=== PATIENT | female | born 1950 | race Caucasian/White ===

== ENCOUNTER 2023-12-04 20:41 | Inpatient (IN) | payer MEDICARE, OTHER, SELFPAY ==
[2023-12-04 17:13] VITALS: BP 164/87
[2023-12-04 17:27] LABS: Urine Albumin Trace (Neg - Trace); Urine Bilirubin Negative (Negative); Urine Character Clear (Clear); Urine Color Yellow; Urine Glucose Negative (Negative); Urine Ketone 2+ (Negative); Urine Leukocyte Trace (Negative); Urine Nitrite Negative (Negative); Urine Occult Blood 2+ (Negative); Urine Urobilinogen Negative (Neg - 1+)
[2023-12-04 17:56] LABS: Urine Red Blood Cell 21-25 /HPF (0-2)
[2023-12-04 17:57] LABS: Urine Bacteria Few (Negative)
--- NOTE | 2023-12-04 18:06 | ED.GENMED ---
History of Present Illness
General
Chief Complaint: Female Investor/Gu symptoms
Source: patient
Exam Limitations: none
Time Seen by Provider: 12/04/23 17:35
Nursing documentation reviewed up to this point in time: agreed with
History of Present Illness
History of Present Illness:
73 y/o F with h/o HLD, iritable bowel syndrome
here with lower abd pain and dysuria and urinary frequency starting on 6�16. She went to [facility] clinic and was given a 10-day course of Macrobid which she completed and felt a little bit better during but then after finishing the medication
symptoms returned. On 7�1 she went back to the same clinic and received another 7 days of Macrobid. She is not sure what the culture grew out. Patient has been having continued lower abdominal pain, some urinary urgency but then also started with
rigors and a fever with Tmax of 102 last night. She treated that with Tylenol and then again this morning had a temp of 10 felt 1.5 and treated that with Tylenol. She has not had any Tylenol in several hours and her temp for me is one 1.6.
Patient has a headache but otherwise complains of lower abdominal pain. She is not having any cough, sore throat, neck stiffness, confusion, chest pain or shortness of breath, diarrhea or vomiting. Patient has 1 sexual partner. She has never had
a kidney stone
Past History
Past History
ED Past Medical History: Hypercholesterolemia and Other (IBS)
Social History
Tobacco: Non-smoker
Review of Systems
Review of Systems
Allergies reviewed?: Yes
All Other Systems: Not applicable
Phy Exam
Physical Exam
Physical Exam:
GENERAL: Alert nontoxic but slightly ill-appearing
EYE: pupils equal and reactive
NECK: Supple, no meningismus
ENT: o/p clr, mmm.
CARDIAC: Regular rate and rhythm .
LUNGS: Clear breath sounds bilaterally, no acute respiratory distress, no wheezes/rales/rhonchi
ABDOMEN: Soft, suprapubic tenderness mild no r/g, no cvat, normal bowel sounds
NEUROLOGICAL: Alert and oriented, no focal neuro deficits
SKIN: Warm and dry, skin intact.
MUSCULOSKELETAL: No edema, well perfused. neg tejinder's sign
PSYCH: Normal and appropriate interaction.
Course
Orders/Labs/Results
Orders:
Orders
12/04/23 Dinner
Regular
At Your Request: Limited Participation
Does patient need a safe tray?: No
12/04/23 17:21
Urinalysis Reflex To Culture Urgent
Date Specimen was Collected: 12/04/23
Time Specimen was Collected: 17:17
Urine Microscopic Reflex Cult Urgent
12/04/23 18:05
CT Abd/pel Without Iv Or Oral Urgent
Comment:
Reason For Exam: lower abd pain, no relief with po abx;
0.9% Sodium Chloride 1000 ml [Nss] 1,000 ml IV BOLUS
Acetaminophen [Tylenol] 1,000 mg PO NOW STA
12/04/23 18:38
Complete Blood Count/With Diff Urgent
Comprehensive Metabolic Panel Urgent
Lactic Acid Q4H
Comment: CANCEL 2nd LACTIC ACID IF 1st LACTIC ACID IS LESS THAN 2
Blood Culture Urgent
AUBREY Source: Blood/Venous
Specimen Description:
12/04/23 19:56
COVID-19 Antigen Urgent
Source: Nasal Swab
12/04/23 19:57
CefTRIAXone [Rocephin] 1,000 mg IV NOW STA
12/04/23 20:00
Urinalysis Reflex To Culture Urgent
Date Specimen was Collected: 12/04/23
Time Specimen was Collected: 19:58
Urine Microscopic Reflex Cult Urgent
12/04/23 20:13
Ketorolac [Toradol] 30 mg IV NOW STA
12/04/23 20:33
Admit/Transfer Patient As Directed
Co-Sign Provider:
Level of Care: Inpatient admission
Assign to:: Medical/Surgical
Physician / Group: Abi Hill
Diagnosis: Fevers, Urinary Tract Infection
Reason for Hospitalization: UTI; failed outpatient abx
Expected length of stay greater than two midnights?: Yes
ELOS- Estimated Length of Stay in days: 3
I certify the patient meets the requirements for IP care: Yes
12/04/23 20:34
Code Status As Directed
Resuscitation Status: Full Code
12/04/23 21:37
0.9% Sodium Chloride 1000 ml [Nss] 1,000 ml IV 100 mls/hr
Acetaminophen [Tylenol] 650 mg PO Q4HPRN PRN
Bisacodyl [Dulcolax] 10 mg RECTAL [id number] PRN
Docusate W/Senna [Senokot-S] 1 tablet PO BIDPRN PRN
Polyethylene Glycol Powder [Miralax] 17 grams PO DAILYPRN PRN
12/04/23 21:37
Activity As Directed
Activity Level: As Tolerated
Obtain Records As Directed
Dates of Information to be Released: 2023
Type of Information Requested: Other
If Other, list type of info requested: urine culture
Comment: from [facility] clinic
Vital Signs As Directed
Frequency: Per unit guidelines
DX Deep Vein Thrombosis Video Routine
12/04/23 22:00
Atorvastatin [Lipitor] 10 mg PO HS
Lisinopril [Zestril] 10 mg PO HS
12/05/23 07:11
Basic Metabolic Panel IN AM
Complete Blood Count/With Diff IN AM
Magnesium IN AM
12/05/23 17:21
Urine Culture Urgent
AUBREY Source: U
Specimen Description:
Date Specimen was Collected: 12/04/23
Time Specimen was Collected: 17:17
Comment: ADD ON REQUEST FOR CULTURE BY ABI HILL
12/05/23 18:00
Enoxaparin Sodium [Lovenox] 40 mg SC QPM
12/05/23 20:00
CefTRIAXone [Rocephin] 1,000 mg IV Q24H
Abnormal Lab Results
12/04/23 12/04/23 12/04/23
17:21 18:38 20:00
RBC 4.19 L 10^6/uL
(4.20-5.40)
MCH 32.2 H pg
(27.0-31.0)
Absolute Neuts (auto) 7.2 H 10^3/uL
(1.4-6.5)
Absolute Lymphs (auto) 0.5 L 10^3/uL
(1.2-3.4)
Neutrophils % 84.3 H %
(42.2-75.2)
Lymphocytes % 5.8 L %
(20.5-51.1)
Sodium 134 L mmol/L
(135-145)
Glucose 104 H mg/dl
(70-99)
AST 40 H U/L
(14-36)
Urine Ketones 2+ A 2+ A
(Negative) (Negative)
Ur Occult Blood Reflex 2+ A 1+ A
(Negative) (Negative)
Leukocyte Esterase Rfl Trace A
(Negative)
Urine RBC 21-25 A /HPF 16-20 A /HPF
(0-2) (0-2)
Urine Bacteria (Reflex) Few A Few A
(Negative) (Negative)
12/04/23 18:38
12/04/23 18:38
Vital Signs
Temp: 101.6 F
Initial and Last Documented VS:
Initial Vital Signs
Temp Pulse Resp BP Pulse Ox
100.5 F H 87 16 164/87 98
12/04/23 17:13 12/04/23 17:13 12/04/23 17:13 12/04/23 17:13 12/04/23 17:13
Last Documented Vital Signs
Temp Pulse Resp BP Pulse Ox
97.9 F 57 14 142/73 96
12/06/23 07:00 12/06/23 07:00 12/06/23 07:00 12/06/23 07:00 12/06/23 07:00
MDM/Problems Addressed
Differential Diagnosis Includes:
UTI, bacteremia, sepsis, pyelonephritis, infected kidney stone, diverticulitis
MDM/Problems Addressed:
73-year-old female with lower abdominal pain and urinary symptoms starting 2 and half weeks ago when she was treated with a round of antibiotics, it was an extended course, M-cup unclear why she required a 10-day course but she didfeel better for a
few days before the symptoms returned. She is not having any GI symptoms otherwise like nausea vomiting or diarrhea but she spiked a fever with chills. She says the rigors are what scared her. She is never had bacteremia before. On exam she was
febrile, slightly ill but nontoxic-appearing, no meningismus, no obvious murmur, abdomen with some mild lower abdominal tenderness on exam, she had no CVA tenderness. Patient was given fluids and Tylenol and worked up with normal white count and
lactic acid, normal creatinine. Her urine appears contaminated and I asked her to give me a second sample. Did a dry skin the patient because she previously has not been able to tolerate either oral or IV contrast
Her CT although they read it as limited does not show any signs of cause for her symptoms. I at this point I am testing her for COVID but I am presuming she has bacteremia from her untreated Freed urine infection and will require IV antibiotics.
Blood cultures are pending. I did reassess her temperature after fluids and Tylenol and she is now even higher at 102.5
*Critical Care Note
Total Time (30-74mins, 75-104mins- exclusive of procedures): Not Applicable
ED Attending Note
-
Portions of this chart may have been created with voice recognition software.� Occasional wrong word or��sound alike� substitutions may have occurred due to the inherent limitations of voice recognition software.
Discharge Plan
Departure
Patient Disposition: Admit
Date of Disposition: 12/04/23
Time of Disposition: 20:13
Admit to: Med/Surg
Presentation/result/management discussed w/ accepting MD/DO: Hospitalist
Patient with high blood pressure during this ER visit?: No
Condition: Fair
Covid-19: Not Applicable
Discharge Problem:
Sepsis
Interventions
Interventions:
*Risk Screen - Suicide Last Done: 12/04/23 22:25
*General Assessment Last Done: 12/04/23 17:13
*Neglect/Abuse Screening Last Done: 12/04/23 17:13
ED- Fall Risk Assessment Last Done: 12/04/23 20:31
*ED COVID-19 Vaccine History Last Done: 12/04/23 22:25
*Nursing Disposition Last Done: 12/04/23 21:56
ED-Female Genitourinary Assessment Last Done: 12/04/23 20:31
Discharge Date and Time
Discharge Date/Time: 12/04/23 21:57
[2023-12-04] MEDS: TYLENOL 1000 MG PO (18:26)
[2023-12-04 18:29] VITALS: BMI 28.3
[2023-12-04 18:52] LABS: % Basophils 0.5 % (0-2); % Eosinophils 3.5 % (0-6); % Immature Granulocytes 0.2 % (0-0.5); % Lymphocytes 5.8 % (20.5-51.1); % Monocytes 5.7 % (1.7-9.3); % Neutrophils 84.3 % (42.2-75.2); Absolute Eosinophils 0.3 10^3/uL (0-0.7); Absolute Lymphocytes 0.5 10^3/uL (1.2-3.4); Absolute Monocytes 0.5 10^3/uL (0.1-0.6); Absolute Neutrophils 7.2 10^3/uL (1.4-6.5); Hemoglobin 13.5 g/dL (12.0-16.0); Mean Corp Hgb Conc. 34.6 g/dL (33.0-37.0); Mean Corpuscular Hgb 32.2 pg (27.0-31.0); Mean Corpuscular Volume 93.1 fL (81.0-99.0); Mean Platelet Volume 9.4 fL (7.4-10.4); Nucleated Red Blood Cells % 0 %; Platelet Count 235 10^3/uL (130-400); Red Blood Cell Count 4.19 10^6/uL (4.20-5.40); Red Cell Dist. Width 12.9 % (11.5-14.5); White Blood Cell Count 8.6 10^3/uL (4.8-10.8)
[2023-12-04 19:03] LABS: Lactic Acid 1.2 mmol/L (0.7-2.0)
[2023-12-04 19:07] LABS: ALT (SGPT) 23 U/L (0-35); AST (SGOT) 40 U/L (14-36); Albumin 4.2 g/dl (3.5-5.0); Alkaline Phosphatase 68 U/L (38-126); Blood Urea Nitrogen 16 mg/dl (7-17); Calcium 9.4 mg/dl (8.4-10.2); Carbon Dioxide 27 mmol/L (22-30); Chloride 101 mmol/L (98-107); Estimated Creatinine Clearance 77 ml/min; Glucose 104 mg/dl (70-99); Potassium 4.2 mmol/L (3.5-5.1); Sodium 134 mmol/L (135-145); Total Bilirubin 1.1 mg/dl (0.2-1.3); Total Protein 6.6 g/dl (6.3-8.2); eGFR > 60.00
[2023-12-04] MEDS: NSS 1000 IV ×2 (19:12→22:20)
[2023-12-04 19:13] VITALS: BP 139/78
[2023-12-04 20:01] VITALS: BP 130/65
[2023-12-04] MEDS: ROCEPHIN 1000 MG IV (20:02)
--- NOTE | 2023-12-04 20:14 | HPS.HSE ---
Family Physician
-
Family Physician: Wojciech Guzman
Chief Complaint
-
rigors, fever
History of Present Illness
Ms. Iwona Adair is a 73 yo woman with hx HLD presents to the ER with continued dysuria and urinary urgency despite course of antibiotics and new fevers over past 48 hours.
Patient had beginning of UTI symptoms end of October with lower abdominal pain and dysuria, + increased urinary urgency. She was prescribed 10 days of Macrobid with improvement in symptoms but did not have full resolution. Symptoms began to worsen
again and on November 30 she was re-prescribed Macrobid. Following day she began to have fevers up to 102 and came to ER today. + fatigue, + nausea, no vomiting. She hasn't been eating well, has been drinking a lot of fluids. + frontal headache. No
rash, no swelling. She continues to have lower abdominal pain and dysuria.
No chest pain or shortness of breath.
Medical History
Past Medical History
Past Medical History: Reports Hypercholesterolemia
Past Surgical History: Reports (x3) and Orthopedic
Social History
Tobacco: Non-smoker
Alcohol: None
Family History
Family History: Not pertinent
Allergies / Home Medications
Allergies reflects when Allergies were last updated in [facility].
Home Medications with original date entered in [facility]
Allergy/Medication List:
Allergies
Allergy/AdvReac Type Severity Reaction Status Date / Time
Iodinated Contrast Media Allergy Unknown Verified 12/04/23 17:13
[Iodinated Contrast- Oral
and IV Dye]
Home Medications
CoQ-10 1 cap PO HS 12/04/23
acetaminophen 325 mg tablet (Tylenol) 650 mg PO BIDPRN PRN mild pain 12/04/23
ascorbic acid (vitamin C) 1,000 mg tablet (Vitamin C) 1,000 mg PO DAILY 12/04/23
cholecalciferol (vitamin D3) 1 tab PO HS 12/04/23
cyanocobalamin (vitamin B-12) 1,000 mcg tablet 1,000 mcg PO DAILY 12/04/23
hyoscyamine sulfate 0.125 mg sublingual tablet 0.125 mg PO TIDPRN PRN IBS 12/04/23
lisinopril 10 mg tablet 10 mg PO HS 12/04/23
multivitamin 1 tab PO DAILY 12/04/23
nitrofurantoin monohydrate/macrocrystals 100 mg capsule 100 mg PO Q12H 12/04/23
simvastatin 20 mg tablet 20 mg PO HS 12/04/23
Review of Systems
-
History Source: Patient
A 12 point ROS was completed and negative except as noted: Yes
Physical Exam
Vital Signs
Vital Signs
Temp Pulse Resp BP Pulse Ox
102.3 F H 87 18 139/78 97
12/04/23 19:57 12/04/23 17:13 12/04/23 19:13 12/04/23 19:13 12/04/23 19:13
Physical Exam
General: Conversant and Other (appears fatigued)
HEENT: PERRLA
Respiratory: Clear; No Wheezes
Cardiac: S1/S2 and Regular Rhythm
GI: Soft and Non Tender
Musculoskeletal: No Edema
Skin: Warm and Dry; No Rash
Neuro: AO x 3
Psych: Calm
Laboratory Results
-
12/04/23 18:38
12/04/23 18:38
Laboratory Results
Lactic Acid Cancelled 12/04/23 22:15
Total Bilirubin 1.1 mg/dl (0.2-1.3) 12/04/23 18:38
AST 40 U/L (14-36) H 12/04/23 18:38
ALT 23 U/L (0-35) 12/04/23 18:38
Alkaline Phosphatase 68 U/L (38-126) 12/04/23 18:38
Data Reviewed
-
Diagnostic Radiology: Report Reviewed by me
Lab Data: Labs Reviewed by me
Impression/Plan
-
Ms. Iwona Adair is a 73 yo woman with hx HLD presents to the ER with dysuria, urgency despite course of antibiotics and new fevers and rigors over past 24 hours.
Triage VS: T 100.5, P 87, RR 16, BP 164/87, SpO2 98%
LABS: WBC 8.6, Hg 13.5, PLT 235, Na 134, K+ 4.2, CO2 27, Cr 0.6, Glucose 104, Lactate 1.2, T. Bili 1.1, AST 40, ALT 23, Alk Phos 68
CT A/P
IMPRESSION:
No CT evidence for an acute inflammatory process within the significant limitations of the lack of intravenous and oral contrast.
MAR: IV Ceftriaxone, Toradol, tylenol, 1L bolus
FEVER
URINARY TRACT INFECTION
-s/p course of 10 days Macrobid, now with fever and continued symptoms
-admit to med/surg
-continue IV Ceftriaxone
-F/U urine culture here and order for obtain records [facility] prior urine culture
-F/U blood cultures
-IVF
Essential HTN
-SHIPSMITH Lisinopril with hold parameters, hypertensive in ER
HLD
-SHIPSMITH statin
DVT PPx Lovenox subQ
FULL CODE
[2023-12-04 20:19] LABS: Urine Albumin Negative (Neg - Trace); Urine Bilirubin Negative (Negative); Urine Character Clear (Clear); Urine Color Yellow; Urine Glucose Negative (Negative); Urine Ketone 2+ (Negative); Urine Leukocyte Negative (Negative); Urine Nitrite Negative (Negative); Urine Occult Blood 1+ (Negative); Urine Urobilinogen Negative (Neg - 1+)
[2023-12-04 20:22] LABS: COVID-19 Antigen Negative (Negative)
[2023-12-04] MEDS: TORADOL 30 MG IV (20:28)
[2023-12-04 20:33] LABS: Urine Bacteria Few (Negative); Urine Red Blood Cell 16-20 /HPF (0-2); Urine White Cell 0-2 /HPF (0-5)
[2023-12-04 21:41] VITALS: BP 125/65; BMI 27.9
[2023-12-04] MEDS: LIPITOR 10 MG PO (22:20)
[2023-12-04] MEDS: ZESTRIL 10 MG PO (22:20)
[2023-12-04 23:21] VITALS: BP 112/63
[2023-12-05 03:00] VITALS: BP 136/79
[2023-12-05 03:10] VITALS: BP 136/79
[2023-12-05 03:15] VITALS: BP 136/79
[2023-12-05] MEDS: TYLENOL 650 MG PO ×3 (06:02→20:54)
[2023-12-05 07:00] VITALS: BP 106/66
[2023-12-05 07:58] LABS: % Basophils 1.2 % (0-2); % Eosinophils 7.6 % (0-6); % Immature Granulocytes 0.3 % (0-0.5); % Lymphocytes 21.1 % (20.5-51.1); % Monocytes 14.4 % (1.7-9.3); % Neutrophils 55.4 % (42.2-75.2); Absolute Basophils 0.1 10^3/uL (0-0.2); Absolute Eosinophils 0.4 10^3/uL (0-0.7); Absolute Lymphocytes 1.2 10^3/uL (1.2-3.4); Absolute Monocytes 0.8 10^3/uL (0.1-0.6); Absolute Neutrophils 3.2 10^3/uL (1.4-6.5); Hematocrit 34.3 % (37.0-47.0); Mean Corpuscular Hgb 32.6 pg (27.0-31.0); Mean Corpuscular Volume 93.2 fL (81.0-99.0); Mean Platelet Volume 9.9 fL (7.4-10.4); Nucleated Red Blood Cells % 0 %; Platelet Count 222 10^3/uL (130-400); Red Blood Cell Count 3.68 10^6/uL (4.20-5.40); Red Cell Dist. Width 13.1 % (11.5-14.5); White Blood Cell Count 5.8 10^3/uL (4.8-10.8)
[2023-12-05 08:05] LABS: Blood Urea Nitrogen 11 mg/dl (7-17); Calcium 8.6 mg/dl (8.4-10.2); Carbon Dioxide 24 mmol/L (22-30); Chloride 109 mmol/L (98-107); Estimated Creatinine Clearance 76 ml/min; Glucose 81 mg/dl (70-99); Potassium 3.5 mmol/L (3.5-5.1); Sodium 138 mmol/L (135-145); eGFR > 60.00
[2023-12-05] MEDS: FLUSH (NSS) 1 FLUSH IV (09:00)
[2023-12-05 15:00] VITALS: BP 106/66
--- NOTE | 2023-12-05 15:53 | W.PN.HOSP.TC ---
Today's Communication/Plan
-
Follow-up blood culture urine culture
Continue IV antibiotic
Awaiting ID consultation
Assessment / Plan
Assessment / Plan
CT abdomen pelvis
IMPRESSION:
No CT evidence for an acute inflammatory process within the significant limitations of the lack of intravenous and oral contrast.
NAD, not in distress
scleral anicteric
MMM, No Jvd
CTA b.l
RRR, Normal s1/s2
soft, nt, nd bs+
aaox3
Complicated UTI. Failed outpatient therapy with Macrobid. Now on Rocephin feels little bit better.
-Admits to urinary pressure and dysuria
Blood culture in lab. Urine culture and blood
Continue IV Rocephin for now
ID consulted
Hypertension continue lisinopril with hold parameters
Hyperlipidemia continue statin
Anticipated Discharge: 24 - 48 hours
Subjective/Interval History
-
Date of Service: December 05, 2023
Seen and examined. no new complaints. no acute overnight events.
Objective Data
-
Labs:
Laboratory Results
12/05/23
07:11
WBC 5.8
Hgb 12.0
Hct 34.3 L
Plt Count 222
Sodium 138
Potassium 3.5
Chloride 109 H
Carbon Dioxide 24
BUN 11
Creatinine 0.6
Glucose 81
Calcium 8.6
Vital Signs:
Vital Signs
Temp Pulse Resp BP Pulse Ox
98.6 F 62 16 106/66 98
12/05/23 07:00 12/05/23 07:00 12/05/23 07:00 12/05/23 07:00 12/05/23 07:00
I&O
12/04/23 12/05/23 12/06/23
06:59 06:59 06:59
Intake Total 480 / 480
Balance 480 / 480
--- NOTE | 2023-12-05 16:04 | CON.ID ---
Consultation
-
Date/Time Consultation Requested: 12/05/2023 08:04
Date/Time Consultation Performed: 12/05/2023 1500
Requesting Provider: Dr. Pichardo
Performing Provider: Dr. Abdi
Reason for Consultation: Complicated urinary tract infection
Chief Complaint / Past History
History of Present Illness
Iwona Fitch is a 73-year-old female being evaluated at the request of Dr. Pichardo in regards to a complicated urinary tract infection. History is obtained from chart review, along with patient interview.
The patient has a significant past medical history only for dyslipidemia and irritable bowel syndrome. She reports that she was in her usual state of health until approximately 11/16/2023 when she developed urinary symptomatology consisting of
suprapubic discomfort, dysuria and urinary urgency. She was seen at a [facility] clinic and received a course of Macrobid, which she took for 10 days.
She notes that her symptomatology improved by the end of therapy, only to return on 11/30. She was seen back at the [facility] clinic and received an additional 7-day course of Macrobid. Despite antibiotic therapy she continued to feel very weak and
tired. Additionally, yesterday she developed a fever to 102 degrees for which she took Tylenol. She admits to chills, along with hot flashes and rigors. She denies any hematuria. She denies any flank pain. She denies any nausea or vomiting or
diarrhea.
Past History
Additional Past Medical History:
Dyslipidemia
Irritable bowel syndrome
Additional Past Surgical History:
x 3
Left ankle fracture
Allergy History:
Iodinated Contrast Media [Iodinated Contrast- Oral and IV Dye] Allergy (Verified 12/04/23 17:13)
reports 'a line developed up my arm'. No hx SOB or rash.
Medications Reviewed: Yes
Current Antibiotics:
Ceftriaxone 1 g IV every 24 hours
Social History
Tobacco: Non-Smoker
Alcohol: None
Drug: None
Personal:
Living: With Family
Employment: Employed
Family History
Family History: Not Pertinent
Review of Systems
Vital Signs
Temp Pulse Resp BP Pulse Ox
98.6 F 62 16 106/66 98
12/05/23 07:00 12/05/23 07:00 12/05/23 07:00 12/05/23 07:00 12/05/23 07:00
Physical Exam
Physical Exam
Constitutional: No Acute Distress, Well Developed, Comfortable and Non-toxic
Head: Normocephalic
Eyes: No Conjunctival Hemorrhage and Sclera Anicteric
Oral: No Thrush and No Ulcers
Cardiovascular: Regular Rate and S1/S2; Negative S3/S4
Pulmonary: Clear; Negative Wheezes, Rales or Rhonchi
Gastrointestinal: Soft, Non Tender and Non Distended
Genito-Urinary: Suprapubic Tenderness; Negative Freed or CVA Tenderness
Extremities: Negative Edema, Cyanosis or Erythema
Skin: Warm and Dry; Negative Rash or Jaundice
Neurological: Awake and Alert
Psychological: Calm
.
Lab / Diagnostic Study Results
12/05/23 07:11
12/05/23 07:11
Abs Immat Gran (auto) 0.0 10^3/uL (0-0.05) 12/05/23 07:11
Absolute Neuts (auto) 3.2 10^3/uL (1.4-6.5) 12/05/23 07:11
Absolute Lymphs (auto) 1.2 10^3/uL (1.2-3.4) 12/05/23 07:11
Absolute Monos (auto) 0.8 10^3/uL (0.1-0.6) H 12/05/23 07:11
Absolute Basos (auto) 0.1 10^3/uL (0-0.2) 12/05/23 07:11
Immature Gran % 0.3 % (0-0.5) 12/05/23 07:11
Neutrophils % 55.4 % (42.2-75.2) 12/05/23 07:11
Lymphocytes % 21.1 % (20.5-51.1) 12/05/23 07:11
Monocytes % 14.4 % (1.7-9.3) H 12/05/23 07:11
Eosinophils % 7.6 % (0-6) H 12/05/23 07:11
Basophils % 1.2 % (0-2) 12/05/23 07:11
Lactic Acid Cancelled 12/04/23 22:15
Ur Squamous Epith Cells 11-15 /LPF (Few) 12/04/23 17:21
Microbiology Results
Micro:
12/05/23 17:21 Urine Culture - Pending
Urine
12/04/23 18:38 Blood Culture - Pending
Blood/Venous
Imaging:
12/04/2023 CT abdomen/pelvis without contrast: No CT evidence for an acute inflammatory process within the significant limitations of lack of IV and oral contrast.
Assessment / Plan
Complicated urinary tract infection
Fevers
Generalized weakness
Hx dyslipidemia
Irritable bowel syndrome
Recommendations:
Continue with ceftriaxone for the present. Urine and blood cultures are currently pending; will continue to monitor.
Follow for clinical improvement.
Await further culture data to guide antimicrobial selection and potential de-escalation.
[2023-12-05] MEDS: LOVENOX 40 MG SC (17:30)
[2023-12-05] MEDS: LIPITOR 10 MG PO (20:50)
[2023-12-05] MEDS: STERILE WATER FOR INJECTION 10 ML IV (20:51)
[2023-12-05] MEDS: ROCEPHIN 1000 MG IV (20:51)
[2023-12-05] MEDS: ZESTRIL 10 MG PO (20:53)
[2023-12-05] MEDS: MELATONIN 5 MG PO (23:23)
[2023-12-05 23:28] VITALS: BP 129/64
[2023-12-06] MEDS: TYLENOL 650 MG PO ×3 (00:54→14:24)
[2023-12-06 07:00] VITALS: BP 142/73
--- NOTE | 2023-12-06 12:04 | W.PN.ID1 ---
Date of Service
Date of Service: December 06, 2023
Today's Communication
switch to cefdinir to complete a 10 day course 12/03-12/12
Follow up with pcp
Assessment / Plan
Complicated urinary tract infection
Fevers
Generalized weakness
Hx dyslipidemia
Irritable bowel syndrome
Recommendations:
switch to cefdinir to complete a 10 day course 12/03-12/12
Follow up with pcp
Chief Complaint
-: UTI
Subjective / Review of Systems
no further fevers
bp stable
no cbc or bmp today and not needed from my perspective
urine culture was no significant growth
blood culture no growth
12/03 ct a/p: no hydronephrosis
reports bladder spasms much improved, never had flank pain 'I feel a lot better'
Vital Signs / Physical Exam
Vital Signs
Vital Signs
Temp Pulse Resp BP Pulse Ox
97.9 F 57 14 142/73 96
12/06/23 07:00 12/06/23 07:00 12/06/23 07:00 12/06/23 07:00 12/06/23 07:00
Physical Exam
Constitutional: No Acute Distress
Cardiovascular: Regular Rate and S1/S2; Negative Murmur or Rub
Pulmonary: Clear and Symmetric; Negative Wheezes or Rales
Gastrointestinal: Soft, Non Tender, Non Distended and Normal Bowel Sounds
Genito-Urinary: Negative Suprapubic Tenderness or CVA Tenderness
Skin: Warm and Dry; Negative Rash or Jaundice
Objective Data
Lab Data
Lab Results
12/05/23 07:11
12/05/23 07:11
Estimated Creat Clear 76 ml/min 12/05/23 07:11
Lactic Acid Cancelled 12/04/23 22:15
Total Bilirubin 1.1 mg/dl (0.2-1.3) 12/04/23 18:38
AST 40 U/L (14-36) H 12/04/23 18:38
ALT 23 U/L (0-35) 12/04/23 18:38
Alkaline Phosphatase 68 U/L (38-126) 12/04/23 18:38
Most recent labs reviewed.
Micro Results:
12/05/23 17:21 Urine Culture - Final
Urine No Significant Growth
12/04/23 18:38 Blood Culture - Preliminary
Blood/Venous No Growth in 24 hours- Final report to follow
Imaging:
12/04/2023 CT abdomen/pelvis without contrast: No CT evidence for an acute inflammatory process within the significant limitations of lack of IV and oral contrast.
Care Review
Plan reviewed with: Physician (Dr Marvel brock)
[2023-12-06] MEDS: SENOKOT-S 1 TABLET PO (14:21)
--- NOTE | 2023-12-06 14:45 | W.PN.HOSP.TC ---
Today's Communication/Plan
-
if conitnues to improve on the po cefdinir then will plan to dc home tomorrow AM.
Assessment / Plan
Assessment / Plan
CT abdomen pelvis
IMPRESSION:
No CT evidence for an acute inflammatory process within the significant limitations of the lack of intravenous and oral contrast.
NAD, not in distress
scleral anicteric
MMM, No Jvd
CTA b.l
RRR, Normal s1/s2
soft, nt, nd bs+
aaox3
Complicated UTI. Failed outpatient therapy with Macrobid. Now on Rocephin feels little bit better.
-Admits to urinary pressure and dysuria
Blood culture in lab. Urine culture and blood
Transition from IV CTX to PO Cefdinir per iD
Hypertension continue lisinopril with hold parameters
Hyperlipidemia continue statin
Anticipated Discharge: Within 24 hours
Subjective/Interval History
-
Date of Service: December 06, 2023
seen and examined
feeling much better
still has pressure though
Objective Data
-
Vital Signs:
Vital Signs
Temp Pulse Resp BP Pulse Ox
97.9 F 57 14 142/73 96
12/06/23 07:00 12/06/23 07:00 12/06/23 07:00 12/06/23 07:00 12/06/23 07:00
I&O
12/05/23 12/06/23 12/07/23
06:59 06:59 06:59
Intake Total 480 / 480 840 / 840
Balance 480 / 480 840 / 840
[2023-12-06 15:00] VITALS: BP 136/62
[2023-12-06] MEDS: LOVENOX SC (17:09)
[2023-12-06] MEDS: DESYREL 50 MG PO (20:56)
[2023-12-06] MEDS: OMNICEF 300 MG PO (20:56)
[2023-12-06] MEDS: LIPITOR 10 MG PO (20:57)
[2023-12-06] MEDS: ZESTRIL 10 MG PO (21:01)
[2023-12-06 23:53] VITALS: BP 143/75
[2023-12-07 07:55] VITALS: BP 113/68
[2023-12-07] MEDS: OMNICEF 300 MG PO (07:59)
--- NOTE | 2023-12-07 09:53 | W.PN.HOSP.TC ---
Today's Communication/Plan
-
Discharge home on p.o. cefdinir
Assessment / Plan
Assessment / Plan
CT abdomen pelvis
IMPRESSION:
No CT evidence for an acute inflammatory process within the significant limitations of the lack of intravenous and oral contrast.
NAD, not in distress
scleral anicteric
MMM, No Jvd
CTA b.l
RRR, Normal s1/s2
soft, nt, nd bs+
aaox3
Complicated UTI. Failed outpatient therapy with Macrobid. Now on Rocephin feels little bit better.
-Admits to urinary pressure and dysuria
Blood culture in lab. Urine culture and blood
Tolerating cefdinir well. No recurrence of symptoms at this time.
Recommended to call PCP/return to ER if symptomatology develops again.
Complete full dose antibiotics as prescribed
Hypertension continue lisinopril with hold parameters
Hyperlipidemia continue statin
Discharge
Anticipated Discharge: Today
Subjective/Interval History
-
Date of Service: December 07, 2023
States that she is feeling significantly better. No new complaints. No acute overnight events.
Continues to have some pressure. She will continue taking Tylenol for this
She asked me if outpatient practice I told her I did not elevate to hospital medicine.
Objective Data
-
Vital Signs:
Vital Signs
Temp Pulse Resp BP Pulse Ox
98.4 F 53 16 143/75 96
12/06/23 23:53 12/06/23 23:53 12/06/23 23:53 12/06/23 23:53 12/06/23 23:53
I&O
12/06/23 12/07/23 12/08/23
06:59 06:59 06:59
Intake Total 840 / 840 1200 / 1200
Balance 840 / 840 1200 / 1200
--- NOTE | 2023-12-07 09:56 | W.DCSUMMARY ---
Discharge Summary
Discharge Data
Date of Admission: 12/04/23
Date of Discharge: 12/07/23
-
Pending Results: No
Hospital Course
73 female with a past medical history of hypertension, hyperlipidemia, vitamin D deficiency presenting with worsening urinary tract symptoms. Completed 12 days of antibiotics prior to presentation to the hospital. Urine culture without growth.
Blood culture without growth. Started on IV antibiotics. Evaluated by infectious diseases. Recommended to transition to cefdinir and to complete a full 10-day course. Last day of antibiotic will be December 12.
Will need continued outpatient PCP follow-up.
If UTI symptoms recur may require outpatient urology follow-up
Discharge Plan
-
Patient Disposition: Home (Routine Discharge)
Discharge Diagnosis/Procedures: HLD
HTN
UTI
Condition: Good
Diet: No restrictions
Activity: No restrictions
Driving Restrictions: As prior to admission
Bathing Restrictions: None
Activity Restrictions/Additional Instructions:
Presenting with worsening urinary tract symptoms. Completed 12 days of antibiotics prior to presentation to the hospital. Urine culture without growth. Blood culture without growth. Started on IV antibiotics. Evaluated by infectious diseases.
Recommended to transition to cefdinir and to complete a full 10-day course. Last day of antibiotic will be December 12.
Will need continued outpatient PCP follow-up.
CTAP
IMPRESSION:
No CT evidence for an acute inflammatory process within the significant limitations of the lack of intravenous and oral contrast.
Referrals:
Wojciech Guzman MD [Family Provider] -
Prescriptions:
New
cefdinir 300 mg Capsule
300 mg PO Q12 8 Days Qty: 16 0RF
Continued
multivitamin Tablet
1 tab PO DAILY
ascorbic acid (vitamin C) [Vitamin C] 1,000 mg Tablet
1,000 mg PO DAILY
acetaminophen [Tylenol] 325 mg Tablet
650 mg PO BIDPRN PRN (Reason: mild pain)
cyanocobalamin (vitamin B-12) 1,000 mcg Tablet
1,000 mcg PO DAILY
simvastatin 20 mg Tablet
20 mg PO HS
lisinopril 10 mg Tablet
10 mg PO HS
hyoscyamine sulfate 0.125 mg Tablet, Sublingual
0.125 mg PO TIDPRN PRN (Reason: IBS)
CoQ-10
1 cap PO HS
cholecalciferol (vitamin D3)
1 tab PO HS
Discontinued
nitrofurantoin monohyd/m-cryst 100 mg Capsule
100 mg PO Q12H
Patient Comments:
12/04/2023, filled on 12/01/2023 and instructed to take 1 cap Q12H for 7 days.
Discharge Orders:
Discharge Patient (As Directed); Ordered 12/07/23
Ordered By: Luis F Pichardo
Discharge Date and Time
Print Language: JAPANESE
--- NOTE | 2023-12-07 10:34 | CM ---
Met with pt at bedside. Pt resides with her spouse in a multilevel home. No steps to enter. 5 steps + 5 steps to each upper level with a railing. Pt plans to stay on 2 levels when returning home. Pt independent with adls, ambulation. Pt has a cane
and a walker at home, but not currently using.
Plan: Patient for discharge to home with no needs. to provide transport home.
PCP: Wojciech Guzman
Pharmacy: [facility]
== END 2023-12-07 10:35 | disposition home or self-care (01) | DRG 690 ==
LOC: 4 EAST ACU 20:41
PROVIDERS: Physician Assistant; ADMITTING PHYSICIAN Student in an Organized Health Care Education/Training Program; ATTENDING PHYSICIAN Hospitalist; EMERGENCY PHYSICIAN Emergency Medicine; FAMILY PHYSICIAN Internal Medicine; OTHER PHYSICIAN Internal Medicine Infectious Disease
DX: N39.0 Urinary tract infection, site not specified (principal); I10 Essential (primary) hypertension; E78.5 Hyperlipidemia, unspecified; K58.9 Irritable bowel syndrome, unspecified; Z79.899 Other long term (current) drug therapy
CPT/HCPCS: 74176; 80048; 80053; 81003; 81015; 83605; 83735; 85025; 87040; 87086; 87811; 96374; 96375; 99285